=== PATIENT | female | born 1995 | race African-American/Black ===

== ENCOUNTER 2019-02-21 03:34 | Emergency (ER) | payer MEDICAID ==
[~2019-02-21] VITALS: Ht 165.1 cm; Wt 66.0 kg
[2019-02-21 05:29] LABS: CHLORIDE 103 mEq/L (98-107)
[2019-02-21 05:30] LABS: BASOPHILS % 0.2 % (0.0-2.0); EOSINOPHILS % 1.4 % (0.0-5.0); HEMATOCRIT. 40.8 % (36.0-48.0); HEMOGLOBIN. 13.7 g/dL (12.0-16.0); LYMPHOCYTES % 18.2 % (20.0-50.0); MEAN CORPUSCULAR HEMOGLOBIN 30.8 pg (28.0-32.0); MEAN CORPUSCULAR VOLUME 91.6 fL (81.0-99.0); MEAN PLATELET VOLUME 8.8 fl (7.4-10.4); MONOCYTES % 7.3 % (2.0-8.0); NEUTROPHILS % 72.9 % (40.0-76.0); PLATELET 228 x1000/uL (130-400); RED BLOOD CELL COUNT 4.45 mill/uL (4.2-5.4); RED CELL DISTRIBUTION WIDTH 13.1 % (11.6-14.6)
[2019-02-21 05:35] LABS: HCG SCREEN NEGATIVE
[2019-02-21] MEDS ORDERED: ONDANSETRON HCL 4MG/2ML INJ IV STA (07:22)
[2019-02-21] MEDS ORDERED: SODIUM CHLORIDE 0.9% 1,000 ML IV ONE (07:22)
[2019-02-21] MEDS ORDERED: ONDANSETRON 4MG ODT PO STA (07:22)
[2019-02-21 09:18] LABS: CLARITY URINE CLOUDY (CLEAR); COLOR URINE YELLOW (YELLOW); KETONES URINE NEGATIVE (NEGATIVE); LEUKOCYTE ESTERASE URINE NEGATIVE (NEGATIVE); NITRITE URINE NEGATIVE (NEGATIVE); OCCULT BLOOD URINE NEGATIVE (NEGATIVE); PROTEIN URINE NEGATIVE (NEGATIVE); SPECIFIC GRAVITY URINE 1.009 (1.005-1.030); UROBILINOGEN URINE 0.2 E.U./dL (0.2-1.0)
[2019-02-21 10:41] VITALS: BP 115/73
== END 2019-02-21 11:07 | disposition home or self-care (01) ==
LOC: ER 03:34
DX: R11.2 Nausea with vomiting, unspecified (principal); R19.7 Diarrhea, unspecified; F15.10 Other stimulant abuse, uncomplicated
CPT/HCPCS: 36415; 80053; 81003; 83690; 84703; 85025; 96361; 96374; 99283; J2405; J7030; Z7610

== ENCOUNTER 2019-08-17 02:51 | Emergency (ER) | payer MEDICAID ==
[~2019-08-17] VITALS: Ht 165.1 cm; Wt 69.0 kg
[2019-08-17 02:54] VITALS: BP 127/79
[2019-08-17] MEDS ORDERED: IBUPROFEN 800MG TABLET PO ONE (05:45)
[2019-08-17] MEDS ORDERED: ACETAMINOPHEN 500MG TABLET PO ONE (05:45)
== END 2019-08-17 06:17 | disposition home or self-care (01) ==
LOC: ER 02:51
DX: F31.9 Bipolar disorder, unspecified (principal); M54.5 Low back pain; F15.10 Other stimulant abuse, uncomplicated
CPT/HCPCS: 99283